=== PATIENT | female | born 1970 | race Caucasian/White ===

== ENCOUNTER 2018-08-05 10:29 | Emergency (ER) | payer OTHER ==
[~2018-08-05] VITALS: Ht 162.6 cm; Wt 72.6 kg
[2018-08-05] MEDS ORDERED: PROTONIX20 MG PO (10:34)
== END 2018-08-05 19:47 | disposition home or self-care (01) ==
LOC: ER 10:29
DX: K80.20 Calculus of gallbladder without cholecystitis without obstruction (principal)